=== PATIENT | male | born 1955 | race Caucasian/White ===

== ENCOUNTER 2018-10-25 07:23 | Emergency (ER) | payer BC ==
[~2018-10-25] VITALS: Ht 172.7 cm; Wt 93.9 kg
[~2018-10-25 07:23] MED LIST: VALS160T2 PO
[2018-10-25 07:28] VITALS: BP_SYST 165
--- NOTE | 2018-10-25 07:35 | NUR ---
Patient to ER bed 5 to gown for evaluation. Side rails up. Report given to Jackson RUSHING.
[2018-10-25] MEDS ORDERED: NACL 0.9% 1,000 ML IV ONE (07:38)
--- NOTE | 2018-10-25 07:39 | NUR ---
ER Dr. Chapman at bedside examining patient.
--- NOTE | 2018-10-25 07:40 | NUR ---
Pt C/O right back pain radiating to abdomen and nausea since this morning. Pt states pain is 8/10 and has reported poor appetite since last night. Pt has hx of kidney stones and states it feels like past episodes. Vital signs are currently stable, will continue to monitor.
[2018-10-25] MEDS ORDERED: ONDANSETRON HCL 4 MG/2 ML VIAL IVP ONE (07:45)
[2018-10-25] MEDS ORDERED: KETOROLAC TROMETHAMINE 30 MG VIAL IVP ONE (07:45)
[2018-10-25 07:49] LABS: BILIRUBIN,URINE NEGATIVE (NEGATIVE); BLOOD, URINE 3+ (NEGATIVE); CLARITY/URINE CLEAR (CLEAR); COLOR,URINE YELLOW (YELLOW); GLUCOSE,URINE NEGATIVE (NEGATIVE); KETONES,URINE NEGATIVE (NEGATIVE); LEUKOCYTE ESTERASE ,URINE NEGATIVE (NEGATIVE); NITRITE, URINE NEGATIVE (NEGATIVE); PROTEIN URINE NEGATIVE (NEGATIVE); UROBILINOGEN,URINE 0.2 (0.2-1.0)
--- NOTE | 2018-10-25 07:55 | NUR ---
MEDICATED ORDERED. WILL MONITOR PAIN RELIEF.
[2018-10-25 08:07] LABS: BACTERIA,URINE RARE /HPF (None Seen); WBC,URINE 0-3 /HPF (0-3)
[2018-10-25 08:08] LABS: BASOPHILS % (AUTO) 0.6 % (0.0-2.0); EOSINOPHILS # (AUTO) 0.1 K/uL (0.0-0.4); EOSINOPHILS % (AUTO) 1.8 % (0.0-4.0); HEMATOCRIT 46.8 % (36-54); HEMOGLOBIN 15.7 g/dL (14.0-18.0); LYMPHOCYTES # (AUTO) 0.9 K/uL (1.0-5.5); MEAN CORPUSCULAR HEMOGLOBIN 30 pg (27-31); MEAN CORPUSCULAR HGB CONC 34 % (32-36); MEAN CORPUSCULAR VOLUME 90 fL (79.0-98.0); MONOCYTES # (AUTO) 0.4 K/uL (0.0-1.0); MONOCYTES % (AUTO) 5.2 % (1.7-9.3); NEUTROPHILS # (AUTO) 5.8 K/uL (1.8-7.7); NEUTROPHILS % (AUTO) 79.4 % (40.0-70.0); PLATELET COUNT (AUTO) 181 K/uL (130-430); RED BLOOD CELL COUNT(AUTO) 5.22 MIL/uL (4.2-6.2); RED CELL DISTRIBUTION WIDTH 12.7 % (9.0-15.0); WHITE BLOOD COUNT (AUTO) 7.2 K/uL (4.8-10.8)
[2018-10-25] MEDS ORDERED: MORPHINE 4 MG/ML INJ. SYRINGE IVP ONE ×2 (08:15→08:30)
[2018-10-25 08:21] LABS: CREATININE 1.37 mg/dL (0.55-1.30); POTASSIUM 3.8 mmol/L (3.5-5.1)
--- NOTE | 2018-10-25 08:21 | NUR ---
MEDICATED ORDERED. PT STATES THAT TORADOL DID NOTHING TO HELP HIS PAIN. PAIN LEVEL IS A 10/10, GIVEN MORPHINE ORDERED. AT BEDSIDE FOR SUPPORT. SIDE RAILS UP FOR SAFETY
[2018-10-25 08:26] LABS: TOTAL BILIRUBIN 0.8 mg/dL (0.0-1.0)
--- NOTE | 2018-10-25 08:49 | NUR ---
TAKEN TO RADIOLOGY VIA HECTOR
--- NOTE | 2018-10-25 09:01 | NUR ---
RETURNED FROM RADIOLOGY, PLACED BACK TO BED #5, AT BEDSIDE. GIVEN URINAL REQUESTED.
--- NOTE | 2018-10-25 09:45 | NUR ---
PTS FAMILY STATES INCREASE IN PAIN AGAIN, DR LIZARRAGA AWARE
[2018-10-25] MEDS ORDERED: fentaNYL CITRATE/PF 100 MCG/2 ML AMP IVP ONE (10:00)
[2018-10-25] MEDS ORDERED: PROMETHAZINE HCL 25 MG/ML AMP IVP ONE (10:30)
--- NOTE | 2018-10-25 10:53 | NUR ---
Pt medicated for pain level 8/10. Pt tolerated medication administration well. Pt is sleeping in bed, no acute distress noted at this time.
[2018-10-25 11:52] VITALS: BP_SYST 135
--- NOTE | 2018-10-25 11:52 | NUR ---
Patient given written and verbal discharge instructions and verbalizes understanding. ER MD discussed with patient the results and treatment provided. Patient in stable condition. ID arm band removed. IV catheter removed intact and dressing applied, no active bleeding. Rx of Zofran, Tramadol, and Motrin given. Patient educated on pain management and to follow up with PMD. Pain Scale 3/10. ER MD is aware and is prescribed pain medication for pain management at home. Opportunity for questions provided and answered. Medication side effect fact sheet provided.
== END 2018-10-25 11:52 | disposition home or self-care (01) ==
LOC: SED 07:23
DX: N20.0 Calculus of kidney (principal); I10 Essential (primary) hypertension
CPT/HCPCS: 36415; 74176; 80053; 81000; 85025; 96361; 96374; 96375; 99284; J1885; J2270; J2405; J2550; J3010; J7030